=== PATIENT | female | born 1945 | race Caucasian/White ===

== ENCOUNTER 2021-12-24 21:58 | Emergency (ER) | payer MEDICARE, OTHER ==
[~2021-12-24] VITALS: Ht 154.9 cm; Wt 77.1 kg
[2021-12-24] MEDS ORDERED: ONDANSETRON ODT4 MG PO (22:39)
[2021-12-24] MEDS ORDERED: ONDANSETRON HCL 4 MG ORAL DISINTEGRATING TAB ONE (22:51)
== END 2021-12-24 22:59 | disposition home or self-care (01) ==
LOC: FSED 22:11
DX: R42 Dizziness and giddiness (principal)
CPT/HCPCS: 99282; Q0162

== ENCOUNTER 2024-07-26 14:35 | Emergency (ER) | payer MEDICARE, OTHER ==
[~2024-07-26] VITALS: Ht 154.9 cm; Wt 70.8 kg
[~2024-07-26 14:35] MED LIST: ONDANSETRON ODT4 MG PO
[2024-07-26 14:40] VITALS: TEMP 98.7
[2024-07-26 15:38] LABS: CORONAVIRUS COVID-19 AG NEGATIVE (NEGATIVE); INFLUENZA A AG NEGATIVE (NEGATIVE); INFLUENZA B AG NEGATIVE (NEGATIVE)
[2024-07-26] MEDS: SODIUM CHLORIDE 0.9% 1000ML 1,000 ML IV STA (15:47)
[2024-07-26 15:57] LABS: BASOPHILS % 0.3 % (0.0-1.0); EOSINOPHILS % 0.2 % (0.0-6.0); HEMOGLOBIN 13.4 g/dL (12.0-16.0); LYMPHOCYTES # (AUTO) 1.3 (1.0-3.2); LYMPHOCYTES % 10.1 % (18.0-39.1); MEAN CORPUSCULAR HEMOGLOBIN 25.1 pg (28-32); MEAN CORPUSCULAR HGB CONC 31.9 g/dL (31-35); MEAN CORPUSCULAR VOLUME 78.7 fL (81-99); MONOCYTES # (AUTO) 0.9 (0.2-0.8); MONOCYTES % 7.1 % (4.4-11.3); NEUTROPHILS # (AUTO) 10.1 (2.1-6.9); NEUTROPHILS % 81.9 % (38.7-80.0); PLATELET COUNT 224 x10e3/uL (140-360); RED BLOOD COUNT 5.34 x10e6/uL (3.6-5.1); RED CELL DISTRIBUTION WIDTH 15.3 % (11.7-14.4); WHITE BLOOD COUNT 12.37 x10e3/uL (4.8-10.8)
[2024-07-26 16:02] LABS: INR 1.01; PROTHROMBIN TIME 13.9 seconds (11.9-14.5)
[2024-07-26 16:09] LABS: ALANINE AMINOTRANSFERASE 26 IU/L (0-55); ALBUMIN 3.3 g/dL (3.5-5.0); ALKALINE PHOSPHATASE 117 IU/L (40-150); ANION GAP 12.6 mmol/L (8-16); BILIRUBIN,TOTAL 1.6 mg/dL (0.2-1.2); BLOOD UREA NITROGEN 12 mg/dL (7-26); BUN/CREATININE RATIO 14 (6-25); CALCIUM 8.5 mg/dL (8.4-10.2); CARBON DIOXIDE 19 mmol/L (22-29); CHLORIDE 108 mmol/L (98-107); CREATININE, SERUM 0.85 mg/dL (0.57-1.11); EST GLOMERULAR FILTRATION RATE 70 ML/MIN (>=60); GLUCOSE 127 mg/dL (74-118); POTASSIUM 3.6 mmol/L (3.5-5.1); SODIUM 136 mmol/L (136-145); TOTAL PROTEIN 6.7 g/dL (6.5-8.1)
[2024-07-26 16:21] VITALS: PULSE 81; RESP 18
[2024-07-26 16:21] LABS: TROPONIN I < 0.001 ng/mL (0-0.300)
[2024-07-26 17:00] VITALS: BP 117/67; PULSE 73; RESP 18; O2SAT 94
== END 2024-07-26 17:30 | disposition home or self-care (01) ==
LOC: ER 14:45
DX: R42 Dizziness and giddiness (principal); E78.5 Hyperlipidemia, unspecified; F32.A Depression, unspecified; Z11.52 Encounter for screening for COVID-19
CPT/HCPCS: 36415; 70450; 71045; 80053; 83880; 84484; 85025; 85610; 87428; 93005; 99284; J7030